=== PATIENT | female | born 1990 | race Two or more races ===

== ENCOUNTER → 2020-11-01 | Outpatient (CLI) | payer OTHER ==
--- NOTE | 2020-11-01 10:17 | RAD ---
INDICATION : Reason: RUQ PAIN / Spl. Instructions: / History: COMPARISON: None TECHNIQUE: Multiple ultrasound images obtained through the abdomen in grayscale and color. FINDINGS: Liver: Echotexture within normal limits in visualized portions of liver. Mildly prominent in size Gallbladder: Gallstones are visualized. Gallbladder wall is upper limits of normal in thickness. IVC: Partially distended at level of liver. Common Bile Duct: Not dilated. Pancreas: No gross abnormality identified in visualized portions of pancreas. Right Kidney: No hydronephrosis. IMPRESSION: * Multiple gallstones without common bile duct dilation Electronically signed by: Stanislav Sneed MD (11/01/2020 10:15 AM) [id number]
== END ==
LOC: US 08:55
PROVIDERS: ATTEND Clinical Nurse Specialist Family Health
DX: K80.20 Calculus of gallbladder without cholecystitis without obstruction (principal)
CPT/HCPCS: 76705